=== PATIENT | female | born 1980 | race Caucasian/White ===

== ENCOUNTER → 2019-05-25 09:10 | Outpatient (BNVA) | payer BC, SELFPAY | PROVIDERS: Family Provider Family Medicine; PCP Family Medicine; Visit Provider Specialist | DX: G43.711 Chronic migraine without aura, intractable, with status migrainosus (principal); G47.411 Narcolepsy with cataplexy | CPT/HCPCS: 64615; 99213; J0585 ==

== ENCOUNTER → 2019-08-31 12:22 | Outpatient (BNVA) | payer BC, SELFPAY | PROVIDERS: Family Provider Family Medicine; PCP Family Medicine; Visit Provider Specialist | DX: G43.711 Chronic migraine without aura, intractable, with status migrainosus (principal); G47.411 Narcolepsy with cataplexy | CPT/HCPCS: 64615; 99213; J0585 ==

== ENCOUNTER → 2019-11-23 12:39 | Outpatient (BNVA) | payer BC, SELFPAY | PROVIDERS: Family Provider Family Medicine; PCP Family Medicine; Visit Provider Specialist | DX: G47.411 Narcolepsy with cataplexy (principal); G43.711 Chronic migraine without aura, intractable, with status migrainosus | CPT/HCPCS: 64615; 99213; J0585 ==

== ENCOUNTER → 2020-02-15 10:17 | Outpatient (BNVA) | payer BC, SELFPAY | PROVIDERS: Family Provider Family Medicine; PCP Family Medicine; Visit Provider Specialist | DX: G43.711 Chronic migraine without aura, intractable, with status migrainosus (principal); G47.411 Narcolepsy with cataplexy | CPT/HCPCS: 64615; 99213; J0585 ==

== ENCOUNTER → 2020-05-16 09:37 | Outpatient (BNVA) | payer BC, SELFPAY | PROVIDERS: Family Provider Family Medicine; PCP Family Medicine; Visit Provider Specialist | DX: G43.711 Chronic migraine without aura, intractable, with status migrainosus (principal); G47.411 Narcolepsy with cataplexy | CPT/HCPCS: 64615; 99213; J0585 ==

== ENCOUNTER → 2020-08-08 08:01 | Outpatient (BNVA) | payer BC, SELFPAY | PROVIDERS: Family Provider Family Medicine; PCP Family Medicine; Visit Provider Specialist | DX: G43.711 Chronic migraine without aura, intractable, with status migrainosus (principal); G47.411 Narcolepsy with cataplexy | CPT/HCPCS: 64615; 99213; J0585 ==

== ENCOUNTER → 2020-10-31 08:05 | Outpatient (BNVA) | payer BC, SELFPAY | PROVIDERS: Family Provider Family Medicine; PCP Family Medicine; Visit Provider Specialist | DX: G43.709 Chronic migraine without aura, not intractable, without status migrainosus (principal); G47.411 Narcolepsy with cataplexy | CPT/HCPCS: 64615; 99213; J0585 ==

== ENCOUNTER → 2021-01-30 09:16 | Outpatient (BNVA) | payer BC, SELFPAY | PROVIDERS: Family Provider Family Medicine; PCP Family Medicine; Visit Provider Specialist | DX: G43.709 Chronic migraine without aura, not intractable, without status migrainosus (principal); G47.411 Narcolepsy with cataplexy | CPT/HCPCS: 64615; 99213; J0585 ==